=== PATIENT | female | born 1990 | race Caucasian/White ===

== ENCOUNTER → 2017-07-28 | Outpatient (CLI) | payer BC ==
[~2017-07-28] MED LIST: CHOL100027 PO; GLUT1TAB PO; MULT-513 PO; NTRS PO; OMEGCAP2 PO; PROB1TAB16 PO; RMCI IV
== END | disposition home or self-care (01) ==
LOC: C.PAPS 14:03
PROVIDERS: ATTEND Nurse Practitioner
DX: Z12.4 Encounter for screening for malignant neoplasm of cervix (principal); Z11.3 Encounter for screening for infections with a predominantly sexual mode of transmission